=== PATIENT | female | born 1995 | race Caucasian/White ===

== ENCOUNTER 2016-07-28 09:03 | Emergency (ER) | payer BC ==
[2016-07-28] MEDS ORDERED: ONDANSETRON HCL 4 MG/2 ML VIAL ONE ×2 (09:42→11:26)
[2016-07-28] MEDS ORDERED: BISMUTH SUBSALICYLATE 118 ML BTL ONE (10:14)
[2016-07-28] MEDS ORDERED: FAMOTIDINE IN SALINE, ISO-OSM 50 ML IV ONE (10:14)
[2016-07-28] MEDS ORDERED: ACETAMINOPHEN 325 MG TABLET PO ONE (11:26)
--- NOTE | 2016-07-28 13:53 | ER PHYSICIAN DOCUMENTATION ---
Physician Documentation [facility] Name:Erica Sky Age:20 yrs Sex:Female :1995 Arrival Date:07/28/2016 Time:09:03 Bed4 Private MD: Bi Daigle Disposition: 07/28/16 12:48 Discharged to Home/Self Care. Impression: Dehydration, Gastroenteritis vs. Food Poisoning. - Condition is Good. - Discharge Instructions: DEHYDRATION (5y-Adult), DIARRHEA VOMIT Viral 6yAdult - GASTROENTERITIS, Viral [5y-Adult]. - Prescriptions for Zofran 4 mg Oral Tablet - take 1 tablet by ORAL route every 12 hours .; 20 tablet. - Medical Reconciliation form form. - Follow up: Private Physician; When: As needed; Reason: Worsening of condition. - Problem is new. - Symptoms have improved. HPI: 07/28 10:01 This 20 yrs old Female presents to ER with complaints of sc Nausea/Vomiting/Diarrhea. 10:01 The patient presents to the emergency department with nausea, with vomiting, with sc diarrhea, without any complaints of abdominal pain. Onset: The symptom(s)/episode began/occurred today. Possible causes: bad food exposure, fish. The symptoms are alleviated by nothing. Associated signs and symptoms: Pertinent positives: diarrhea, nausea, vomiting. Severity of symptoms: At their worst the symptoms were moderate. Historical: - Allergies: Sulfa (Sulfonamide Antibiotics); - Home Meds: 1. control 2. abx for acne - PMHx: None; - PSHx: None; - Tetanus: < 10 years. - Ebola Screening: : Patient denies exposure to infectious person. Patient denies travel to an Ebola-affected area in the 21 days before illness onset. . - Social history: Smoking status: Patient states was never smoker of tobacco. ROS: 10:02 Eyes: Negative for injury, pain, redness, and discharge. sc Neck: Negative for injury, pain, and swelling. Cardiovascular: Negative for chest pain, palpitations, and edema. Respiratory: Negative for shortness of breath, cough, wheezing, and pleuritic chest pain. Back: Negative for injury and pain. Skin: Negative for injury, rash, and discoloration. 10:02 Neuro: Negative for headache, weakness, numbness, tingling, and seizure. sc 10:02 Constitutional: Positive for chills. 10:02 Abdomen/GI: Positive for nausea, vomiting, diarrhea, Negative for abdominal pain, abdominal distension, dysphagia, black/tarry stool. Exam: Head/Face: Normocephalic, atraumatic. Eyes: Pupils equal round and reactive to light, extra-ocular motions intact. Lids and lashes normal. Conjunctiva and sclera are non-icteric and not injected. Cornea within normal limits. Periorbital areas with no swelling, redness, or edema. Respiratory: Lungs have equal breath sounds bilaterally, clear to auscultation and percussion. No rales, rhonchi or wheezes noted. No increased work of breathing, no retractions or nasal flaring. Back: No spinal tenderness. No costovertebral tenderness. Full range of motion. 10:04 Neuro: Awake and alert, GCS 15, oriented to person, place, time, and situation. sc Cranial nerves II-XII grossly intact. Motor strength 5/5 in all extremities. Sensory grossly intact. Cerebellar exam normal. Normal gait. 10:04 Constitutional: The patient appears alert, awake. 10:04 Cardiovascular: Rate: normal, Rhythm: regular. 10:04 Abdomen/GI: Bowel sounds: active, Palpation: nontender. 10:04 Skin: Turgor: is poor. Vital Signs: 09:05 BP 134 / 66; Pulse 108; Temp 110.4; Pulse Ox 92% on R/A; Pain 2/10; st 10:30 Temp 98.7; st 11:12 Pain 8/10; st 11:12 BP 121 / 69; Pulse 97; Pulse Ox 98% ; st 13:39 BP 106 / 72; Pulse 106; Pulse Ox 90% ; Pain 0/10; st MDM: 09:49 Patient medically screened. az 10:04 Differential diagnosis: viral gastroenteritis, gastroenteritis. Data reviewed: vital sc signs, nurses notes, and as a result, I will administer IV fluids, NS bolus. Medication response: The patient's symptoms have improved. 12:48 Response to treatment: the patient's symptoms have markedly improved after treatment. az 07/28 12:36 Order name: Urine Dip; Complete Time: 12:36 st Dispensed Medications: 09:40 Drug: Zofran 4 mg; Route: IVP; Infused Over: 2 mins; Site: right hand; st 12:36 Follow up: Response: Nausea is decreased st 09:40 Drug: NS 0.9% 1000 ml; Route: IV; Rate: bolus; Site: right hand; st 11:28 Follow up: IV Status: Completed infusion; IV Intake: 1000ml st 10:30 Drug: Pepcid 20 mg; Route: IVPB; Site: left antecubital; lp 11:00 Follow up: IV Status: Completed infusion; IV Intake: 50ml st 10:30 Drug: Pepto-Bismol 30 ml; Route: PO; lp 12:36 Follow up: Response: No adverse reaction st 11:28 Drug: Tylenol 975 mg; Route: PO; st 13:52 Follow up: Response: Pain is decreased st 11:28 Drug: Zofran 4 mg; Route: IVP; Infused Over: 2 mins; Site: right hand; st 13:52 Follow up: Response: Nausea is decreased st 11:28 Drug: NS 0.9% 1000 ml; Route: IV; Rate: bolus; Site: right hand; st 13:51 Follow up: IV Status: Completed infusion; IV Intake: 1000ml st Point of Care Testing: Urine Dip: 10:09 pH: 7.0; ; Specific [place]: 1.015; Ketones: Negative; Glucose: Negative; Protein: st Negative; Leukocytes: Negative; Nitrite: Negative ; Blood: Negative; Bilirubin: Negative ; Urobilinogen: Normal Signatures: Kylie Del Real RN RN st Pavlish, Lena, RN RN lp Chew, Scott, MD MD az
--- NOTE | 2016-07-28 13:53 | ER NURSING DOCUMENTATION ---
Nurse's Notes [facility] Name:Erica Sky Age:20 yrs Sex:Female :1995 Arrival Date:07/28/2016 Time:09:03 Bed4 Private MD: Diagnosis:Dehydration;Gastroenteritis vs. Food Poisoning Presentation: 07/28 09:05 Presenting complaint: Patient states: pt started with N/V/D at four AM and has vomited st every 30 min or so since. pt states she has abd pain when vomiting and flank pain that started about an hour ago. Transition of care: Home. 09:05 Method Of Arrival: Private Vehicle st 09:27 Acuity: ERIS 3 st Triage Assessment: 09:05 General: Appears uncomfortable, actively vomiting.. Behavior is cooperative. Pain: st Complains of pain in back and abdomen Pain currently is 2 out of 10 on a pain scale. Pain began 2 hours ago Aggravated by worst when vomiting. Cardiovascular: tachy. Heart tones present. Respiratory: No deficits noted. GI: Abdomen is non- distended Abd is soft and non tender X 4 quads. Reports diarrhea, nausea, vomiting. : Denies burning with urination. Historical: - Allergies: Sulfa (Sulfonamide Antibiotics); - Home Meds: 1. control 2. abx for acne - PMHx: None; - PSHx: None; - Tetanus: < 10 years. - Ebola Screening: : Patient denies exposure to infectious person. Patient denies travel to an Ebola-affected area in the 21 days before illness onset. . - Social history: Smoking status: Patient states was never smoker of tobacco. Screenin:31 Infectious Disease Risk None. Abuse screen: Denies threats or abuse. Denies injuries st from another. Nutritional screening: No deficits noted. Assessment: 12:24 General: pt continues to complain of body aches and flank pain.. st 12:37 General: pt sleeping.. st 13:33 General: pt has been instructed to let us know when she feels ready to go. pt is going st to try and sleep some more first. . 13:52 General: pt is feeling much better now.. st Vital Signs: 09:05 BP 134 / 66; Pulse 108; Temp 110.4; Pulse Ox 92% on R/A; Pain 2/10; st 10:30 Temp 98.7; st 11:12 Pain 8/10; st 11:12 BP 121 / 69; Pulse 97; Pulse Ox 98% ; st 13:39 BP 106 / 72; Pulse 106; Pulse Ox 90% ; Pain 0/10; st ED Course: 09:05 Patient arrived in ED. ama 09:05 Valuables Remains with patient Patient has correct armband on for positive st identification. Placed in gown. Bed in low position. Call light in reach. Side rails up X 1. Warm blanket given. 09:27 Kylie Del Real, RN is Primary Nurse. st 09:[address] 09:40 Inserted peripheral IV: 22 gauge in right hand and blood collected. st 09:49 Bi Lewis MD is Attending Physician. sd 10:09 Urine collected. Clean catch specimen. st Administered Medications: 09:40 Drug: Zofran 4 mg; Route: IVP; Infused Over: 2 mins; Site: right hand; st 12:36 Follow up: Response: Nausea is decreased st 09:40 Drug: NS 0.9% 1000 ml; Route: IV; Rate: bolus; Site: right hand; st 11:28 Follow up: IV Status: Completed infusion; IV Intake: 1000ml st 10:30 Drug: Pepcid 20 mg; Route: IVPB; Site: left antecubital; lp 11:00 Follow up: IV Status: Completed infusion; IV Intake: 50ml st 10:30 Drug: Pepto-Bismol 30 ml; Route: PO; lp 12:36 Follow up: Response: No adverse reaction st 11:28 Drug: Tylenol 975 mg; Route: PO; st 13:52 Follow up: Response: Pain is decreased st 11:28 Drug: Zofran 4 mg; Route: IVP; Infused Over: 2 mins; Site: right hand; st 13:52 Follow up: Response: Nausea is decreased st 11:28 Drug: NS 0.9% 1000 ml; Route: IV; Rate: bolus; Site: right hand; st 13:51 Follow up: IV Status: Completed infusion; IV Intake: 1000ml st Point of Care Testing: Urine Dip: 10:09 pH: 7.0; ; Specific [place]: 1.015; Ketones: Negative; Glucose: Negative; Protein: st Negative; Leukocytes: Negative; Nitrite: Negative ; Blood: Negative; Bilirubin: Negative ; Urobilinogen: Normal Intake: 11:00 IV: 50ml; Total: 50ml. st 11:28 IV: 1000ml; Total: 1050ml. st 13:51 IV: 1000ml; Total: 2050ml. st Outcome: 12:48 Discharge ordered by . sd 13:45 Discharged to home ambulatory. st 13:45 Condition: improved 13:45 Discharge instructions given to patient, Instructed on discharge instructions, follow up and referral plans. medication usage, Prescriptions given X 1. 13:45 IV D/Brad 13:53 Patient [address] the ED. st 07/29 09:22 Discharge F/U Call: Unable to reach: no answer st Signatures: Kylie Del Real RN RN st Pavlish, Lena, RN RN lp Chew, Scott, MD MD sc Averdick, Andrew, Reg Reg ama
== END 2016-07-28 13:53 | disposition home or self-care (01) ==
LOC: ER 09:03
DX: E86.0 Dehydration (principal); R11.2 Nausea with vomiting, unspecified; R19.7 Diarrhea, unspecified; R68.83 Chills (without fever)
CPT/HCPCS: 96361; 96365; 96375; 96376; 99284; J2405